=== PATIENT | male | born 1975 | race Caucasian/White ===

== ENCOUNTER 2018-04-04 20:11 | Emergency (ER) | payer MEDICAID ==
[~2018-04-04] VITALS: Ht 172.7 cm; Wt 50.4 kg
[2018-04-04 20:19] VITALS: BP 129/80
[2018-04-04] MEDS ORDERED: TETanus/Pertussis (Acell)/Diphther VAC/PF (Tdap-Adult) 0.5ml syringe IM ONE (21:50)
== END 2018-04-04 22:33 | disposition home or self-care (01) ==
LOC: ER 20:11
DX: L02.416 Cutaneous abscess of left lower limb (principal); G89.29 Other chronic pain; Z88.5 Allergy status to narcotic agent; Z88.8 Allergy status to other drugs, medicaments and biological substances
CPT/HCPCS: 10060; 90471; 90715; 99283; A6449

== ENCOUNTER 2021-02-24 17:59 | Inpatient (IN) | payer BC, MEDICAID ==
[~2021-02-24] VITALS: Ht 172.7 cm; Wt 52.2 kg
[2021-02-24 19:43] LABS: CLARITY,URINE SLIGHTLY CLOUDY (Clear); COLOR,URINE YELLOW (Yellow); GLUCOSE, URINE NEGATIVE (Neg); KETONES,URINE TRACE mg/dl (Neg); LEUKOCYTE ESTERASE ,URINE NEGATIVE (Neg); NITRITES, URINE NEGATIVE (Neg); OCCULT BLOOD,URINE LARGE (Neg); PH,URINE 5.5 (4.8-8.0); PROTEIN,URINE TRACE mg/dl (Neg)
[2021-02-24 19:47] LABS: ALANINE AMINOTRANSFERASE 72 U/L (12-78); ALBUMIN 3.4 G/DL (3.4-5.0); ALBUMIN/GLOBULIN RATIO 0.8 (1.1-1.5); ALKALINE PHOSPHATASE 141 IU/L (46-116); ANION GAP 8 (8-16); ASPARTATE AMINO TRANSFERASE 63 U/L (10-37); BILIRUBIN,TOTAL 1.7 MG/DL (0.1-1.0); BLOOD UREA NITROGEN 10 MG/DL (7-18); BUN/CREATININE RATIO 10.9 (5.4-32.0); CALCIUM 9.5 MG/DL (8.5-10.1); CHLORIDE 101 MMOL/L (99-107); CREATININE 0.92 MG/DL (0.60-1.10); GLUCOSE 116 MG/DL (70-104); LIPASE 182 U/L (73-393); POTASSIUM 3.4 MMOL/L (3.5-5.1); SODIUM 139 MMOL/L (135-145); TOTAL CARBON DIOXIDE 29.7 MMOL/L (24-32); TOTAL PROTEIN 7.5 G/DL (6.4-8.2); eGFR 89 ML/MIN
[2021-02-24 19:58] LABS: HEMATOCRIT 31.3 % (42.0-52.0); HEMOGLOBIN 9.7 g/dl (14.0-17.9); MEAN CORPUSCULAR HEMOGLOBIN 17.4 PG (27.0-31.0); MEAN CORPUSCULAR HGB CONC 30.9 g/dL (33.0-36.5); MEAN CORPUSCULAR VOLUME 56.1 FL (78-98); MEAN PLATELET VOLUME 8.2 FL (7.4-10.4); PLATELET COUNT 500 X10'3 (140-440); RED BLOOD COUNT 5.57 X10'6 (4.70-6.10); RED CELL DISTRIBUTION WIDTH 20.2 % (11.5-14.5)
[2021-02-24 19:59] LABS: NEUTROPHILS % (AUTO) 78.8 % (42-75)
[2021-02-24 20:00] LABS: BASOPHILS % (AUTO) 0.3 % (0-1); EOSINOPHILS # (AUTO) 0.2 X10'3 (0-0.9); EOSINOPHILS % (AUTO) 1.9 % (0-6); LYMPHOCYTES % (AUTO) 9.1 % (21-51); MONOCYTES # (AUTO) 1.1 X10'3 (0-0.9); MONOCYTES % (AUTO) 9.9 % (2-12); NEUTROPHILS # (AUTO) 8.8 X10'3 (1.8-7.7)
[2021-02-24] MEDS ORDERED: ondansetron/PF 4mg/2ml inj IV ONE (20:05)
[2021-02-24] MEDS ORDERED: morphine 4 MG/ML inj SYRINge IV ONE (20:05)
[2021-02-24] MEDS ORDERED: normal saline 1000ml 1,000 ML IV ONE (20:05)
[2021-02-24] MEDS ORDERED: iohexol 300mg/ml 100ml inj. ONE (20:14)
[2021-02-24 20:20] LABS: UA COLLECTION TYPE CLN CATCH MIDSTREAM
[2021-02-24 20:22] LABS: BACTERIA,URINE NONE SEEN /HPF (Neg); MUCUS STRANDS FEW /LPF (Neg); SQUAMOUS EPITHELIAL CELL,UR NONE SEEN /LPF (FEW); WBC,URINE NONE SEEN /HPF (0-4)
--- NOTE | 2021-02-24 20:24 | NUR ---
PT TO CT
[2021-02-24] MEDS ORDERED: temazepam 15mg capsule PO PRN (21:00)
[2021-02-24 21:05] LABS: MICROCYTOSIS 3+; PLATELET ESTIMATE INCREASED
[2021-02-24 21:06] LABS: ANISOCYTOSIS 3+
[2021-02-24] MEDS ORDERED: NO HOME MEDS (22:12)
[2021-02-24] MEDS ORDERED: HYDROcodone/acetaminophen 10/325mg tab PO PRN (23:15)
[2021-02-24] MEDS ORDERED: HYDROmorphone inj. 0.5 MG/0.5 ML DISP.SYRIN IV PRN (23:15)
[2021-02-24] MEDS ORDERED: magnesium hydroxide 30ml (MOM) UD suspension PO PRN (23:15)
[2021-02-24] MEDS ORDERED: morphine 2 MG/ML inj. syringe IV PRN ×2 (23:15)
[2021-02-24] MEDS ORDERED: HYDROcodone/acetaminophen 5mg/325mg tablet PO PRN (23:15)
[2021-02-24] MEDS ORDERED: potassium Cl 20 mEq SR tablet PO PRN ×2 (23:15)
[2021-02-24] MEDS ORDERED: diphenhydrAMINE 50 mg/ml inj IV PRN (23:15)
[2021-02-24] MEDS ORDERED: acetaminophen 650mg rectal suppository RC PRN (23:15)
[2021-02-24] MEDS ORDERED: metoclopramide 5 mg/ml inj IV PRN (23:15)
[2021-02-24] MEDS ORDERED: mag hydrox/Alum hydrox/simeth 30ml oral suspension PO PRN (23:15)
[2021-02-24] MEDS ORDERED: acetaminophen 325mg tablet PO PRN ×2 (23:15)
[2021-02-24] MEDS ORDERED: potassium Cl 40MEQ/1/2NS 520ml 520 ML IV PRN (23:15)
[2021-02-24] MEDS ORDERED: diphenhydrAMINE 25mg capsule PO PRN (23:15)
[2021-02-24] MEDS ORDERED: ondansetron/PF 4mg/2ml inj IV PRN (23:15)
[2021-02-24] MEDS ORDERED: ondansetron 4mg rapidly disintigrating tab PO PRN (23:15)
[2021-02-24] MEDS ORDERED: bisacodyl 10mg suppository rectal RC PRN (23:15)
[2021-02-24] MEDS: dextrose 5%-1/2 normal saline 1,000 ML IV SCH (23:34)
[2021-02-25] LABS: PARTIAL THROMBOPLASTIN TIME 29 SECONDS (22-32)
[2021-02-25 00:09] LABS: CREATINE KINASE 92 U/L (39-308); LIPASE 213 U/L (73-393); MAGNESIUM 1.7 MG/DL (1.5-2.4); PHOSPHORUS 4.8 MG/DL (2.3-4.5)
[2021-02-25 00:28] LABS: HEMOGLOBIN A1C 5.5 % (4.5-6.2)
[2021-02-25] MEDS: pantoprazole 40 MG vial IV SCH ×2 (00:29→11:45)
--- NOTE | 2021-02-25 04:01 | NUR ---
PT REQUESTS LINEN CHANGE DUE TO LOOSE BOWEL MOVEMENT. HE IS AMBULATORY TO BATHROOM AND ABLE TO CLEAN HIMSELF UP. BEDDING CHANGED, PT PLACED BACK ON MONITOR.
[2021-02-25 07:41] LABS: BASOPHILS % (AUTO) 0.6 % (0-1); EOSINOPHILS # (AUTO) 0.2 X10'3 (0-0.9); EOSINOPHILS % (AUTO) 3.5 % (0-6); LYMPHOCYTES # (AUTO) 1.2 X10'3 (1.1-4.8); LYMPHOCYTES % (AUTO) 16.5 % (21-51); MEAN PLATELET VOLUME 8.3 FL (7.4-10.4); MONOCYTES # (AUTO) 0.9 X10'3 (0-0.9); NEUTROPHILS # (AUTO) 4.7 X10'3 (1.8-7.7); NEUTROPHILS % (AUTO) 66.4 % (42-75); PLATELET COUNT 436 X10'3 (140-440); WHITE BLOOD COUNT 7.1 X10'3 (4.5-11.0)
[2021-02-25 07:57] LABS: ALANINE AMINOTRANSFERASE 73 U/L (12-78); ALBUMIN 3.1 G/DL (3.4-5.0); ALBUMIN/GLOBULIN RATIO 0.9 (1.1-1.5); ALKALINE PHOSPHATASE 152 IU/L (46-116); ANION GAP 6 (8-16); ASPARTATE AMINO TRANSFERASE 59 U/L (10-37); BILIRUBIN,TOTAL 1.3 MG/DL (0.1-1.0); BLOOD UREA NITROGEN 11 MG/DL (7-18); BUN/CREATININE RATIO 11.8 (5.4-32.0); CALCIUM 8.6 MG/DL (8.5-10.1); CHLORIDE 103 MMOL/L (99-107); CREATININE 0.93 MG/DL (0.60-1.10); GLUCOSE 113 MG/DL (70-104); SODIUM 139 MMOL/L (135-145); TOTAL CARBON DIOXIDE 29.8 MMOL/L (24-32); TOTAL PROTEIN 6.7 G/DL (6.4-8.2); eGFR 88 ML/MIN
[2021-02-25] MEDS: K and/or MAG REPLACEMENT MC SCH ×2 (08:00→19:26)
[2021-02-25] MEDS: docusate sod 100mg capsule PO SCH ×2 (08:00→19:19)
[2021-02-25 08:05] LABS: HEMATOCRIT 28.4 % (42.0-52.0); HEMOGLOBIN 9.1 g/dl (14.0-17.9); MEAN CORPUSCULAR HEMOGLOBIN 17.6 PG (27.0-31.0); MEAN CORPUSCULAR HGB CONC 32.1 g/dL (33.0-36.5); MEAN CORPUSCULAR VOLUME 54.9 FL (78-98); RED BLOOD COUNT 5.17 X10'6 (4.70-6.10)
[2021-02-25] MEDS ORDERED: iohexol 300mg/ml 100ml inj. ONE (10:12)
[2021-02-25 10:43] LABS: ANISOCYTOSIS 3+; HYPOCHROMASIA 2+; MICROCYTOSIS 3+; PLATELET ESTIMATE NORMAL; TOTAL CELLS COUNTED 100
[2021-02-25 10:44] LABS: ELLIPTOCYTES FEW; POLYCHROMASIA FEW; SCHISTOCYTES FEW
[2021-02-25 11:27] LABS: URINE AMPHETAMINE SCREEN NEGATIVE (Neg); URINE BARBITUATE SCREEN NEGATIVE (Neg); URINE BENZODIAZEPINES SCREEN NEGATIVE (Neg); URINE CANNABINOID SCREEN NEGATIVE (Neg); URINE COCAINE SCREEN NEGATIVE (Neg); URINE METHADONE SCREEN NEGATIVE (Neg); URINE OPIATE SCREEN POSITIVE (Neg); URINE PHENCYCLIDINE SCREEN NEGATIVE (Neg)
[2021-02-25] MEDS: heparin, porcine 5000 units/ml vial SQ SCH ×2 (11:45→19:25)
[2021-02-25] MEDS: dextrose 5%-1/2 normal saline 1,000 ML IV SCH ×2 (11:46→19:26)
--- NOTE | 2021-02-25 19:17 | NUR ---
PT SNEEZED AND NG TUBE CAME OUT. NEW NG TUBE PLACED WITH POSITIVE AUSCULTATION AND STOMACH CONTENTS NOTED ON ASPIRATION. NG TUBE SECURED.
[2021-02-25] MEDS: diatr meglu/diatrizoate 30ml oral sol.-(3 dose) bottle PO SCH (20:52)
--- NOTE | 2021-02-25 21:00 | NUR ---
ORAL CONTRAST ADMINISTERED, NG TUBE CLAMPED X 2 HOURS THEN RE-ATTACHED TO LOW INTERMITTENT SUCTION. PT REPORTS NO NEEDS AT THIS TIME, HE IS RESTING COMFORTABLY IN THE HOSPITAL BED WITH CALL LIGHT.
--- NOTE | 2021-02-25 23:00 | NUR ---
PT. SITTING UP IN BED SLEEPING.
--- NOTE | 2021-02-26 02:00 | NUR ---
PT SLEEPING, MOVED TO ANOTHER ROOM WITH ALL BELONGINGS.
[2021-02-26] MEDS: dextrose 5%-1/2 normal saline 1,000 ML IV SCH ×2 (06:07→12:03)
[2021-02-26 08:00] LABS: BASOPHILS % (AUTO) 0.5 % (0-1); EOSINOPHILS # (AUTO) 0.2 X10'3 (0-0.9); EOSINOPHILS % (AUTO) 3.9 % (0-6); HEMOGLOBIN 8.8 g/dl (14.0-17.9); LYMPHOCYTES % (AUTO) 16.7 % (21-51); MEAN PLATELET VOLUME 8.3 FL (7.4-10.4); MONOCYTES # (AUTO) 0.8 X10'3 (0-0.9); MONOCYTES % (AUTO) 13.6 % (2-12); NEUTROPHILS # (AUTO) 3.8 X10'3 (1.8-7.7); NEUTROPHILS % (AUTO) 65.3 % (42-75); PLATELET COUNT 424 X10'3 (140-440); WHITE BLOOD COUNT 5.8 X10'3 (4.5-11.0)
[2021-02-26] MEDS: K and/or MAG REPLACEMENT MC SCH ×2 (08:00→19:25)
[2021-02-26] MEDS: docusate sod 100mg capsule PO SCH ×2 (08:00→19:25)
[2021-02-26] MEDS: diatr meglu/diatrizoate 30ml oral sol.-(3 dose) bottle PO SCH ×2 (08:17→09:56)
[2021-02-26] MEDS: heparin, porcine 5000 units/ml vial SQ SCH ×2 (08:17→19:28)
[2021-02-26] MEDS: pantoprazole 40 MG vial IV SCH (08:17)
[2021-02-26 08:29] LABS: ALANINE AMINOTRANSFERASE 58 U/L (12-78); ALBUMIN/GLOBULIN RATIO 0.8 (1.1-1.5); ALKALINE PHOSPHATASE 115 IU/L (46-116); ASPARTATE AMINO TRANSFERASE 38 U/L (10-37); BLOOD UREA NITROGEN 6 MG/DL (7-18); BUN/CREATININE RATIO 6.8 (5.4-32.0); CALCIUM 8.6 MG/DL (8.5-10.1); CREATININE 0.88 MG/DL (0.60-1.10); GLUCOSE 112 MG/DL (70-104); TOTAL PROTEIN 6.6 G/DL (6.4-8.2); eGFR > 90 ML/MIN
[2021-02-26 08:36] LABS: % IRON SATURATION 7 % (11-46); IRON 19 UG/DL (53-167); TOTAL IRON BINDING CAPACITY 281 UG/DL (259-388)
[2021-02-26 08:50] LABS: HEMATOCRIT 27.4 % (42.0-52.0); MEAN CORPUSCULAR HEMOGLOBIN 17.9 PG (27.0-31.0); MEAN CORPUSCULAR VOLUME 55.9 FL (78-98)
[2021-02-26 09:04] LABS: ANISOCYTOSIS 3+; MICROCYTOSIS 3+; PLATELET ESTIMATE NORMAL
[2021-02-26 09:05] LABS: ELLIPTOCYTES FEW; HYPOCHROMASIA 1+; POLYCHROMASIA FEW; SCHISTOCYTES FEW
[2021-02-26 09:08] LABS: ANION GAP 9 (8-16); CHLORIDE 104 MMOL/L (99-107); POTASSIUM 3.3 MMOL/L (3.5-5.1); SODIUM 142 MMOL/L (135-145)
[2021-02-26] MEDS ORDERED: iohexol 300mg/ml 100ml inj. ONE (09:54)
--- NOTE | 2021-02-26 10:15 | NUR ---
rEPORT CALLED TO FAY FERGUSON. PT TO CT THAN SURGICAL ROOM 345
--- NOTE | 2021-02-26 10:40 | NUR ---
patient arrived from CT after getting no report from ER. called down to ER and was able to get report from PHYLLIS Ruiz after patient was already brought to the floor.
[2021-02-26 11:44] VITALS: BP 123/81
[2021-02-26] MEDS: potassium Cl 40MEQ/1/2NS 520ml 520 ML IV PRN (12:03)
[2021-02-26 19:54] VITALS: BP 114/80
[2021-02-26 23:41] VITALS: BP 127/86
[2021-02-27] MEDS: dextrose 5%-1/2 normal saline 1,000 ML IV SCH ×3 (01:34→16:35)
[2021-02-27] MEDS: metoclopramide 5 mg/ml inj IV SCH ×4 (02:52→19:48)
[2021-02-27 06:05] LABS: BASOPHILS # (AUTO) 0.1 X10'3 (0-0.2); BASOPHILS % (AUTO) 0.8 % (0-1); EOSINOPHILS # (AUTO) 0.3 X10'3 (0-0.9); EOSINOPHILS % (AUTO) 3.7 % (0-6); HEMATOCRIT 28.8 % (42.0-52.0); HEMOGLOBIN 8.7 g/dl (14.0-17.9); LYMPHOCYTES % (AUTO) 13.8 % (21-51); MEAN CORPUSCULAR HEMOGLOBIN 17.6 PG (27.0-31.0); MEAN CORPUSCULAR HGB CONC 30.2 g/dL (33.0-36.5); MEAN CORPUSCULAR VOLUME 58.3 FL (78-98); MEAN PLATELET VOLUME 8.3 FL (7.4-10.4); MONOCYTES # (AUTO) 0.8 X10'3 (0-0.9); MONOCYTES % (AUTO) 11.2 % (2-12); NEUTROPHILS # (AUTO) 5.3 X10'3 (1.8-7.7); NEUTROPHILS % (AUTO) 70.5 % (42-75); PLATELET COUNT 445 X10'3 (140-440); RED BLOOD COUNT 4.94 X10'6 (4.70-6.10); RED CELL DISTRIBUTION WIDTH 20.8 % (11.5-14.5); WHITE BLOOD COUNT 7.6 X10'3 (4.5-11.0)
[2021-02-27 06:07] LABS: ALANINE AMINOTRANSFERASE 54 U/L (12-78); ALBUMIN/GLOBULIN RATIO 0.9 (1.1-1.5); ALKALINE PHOSPHATASE 112 IU/L (46-116); ANION GAP 6 (8-16); ASPARTATE AMINO TRANSFERASE 36 U/L (10-37); BLOOD UREA NITROGEN 6 MG/DL (7-18); BUN/CREATININE RATIO 6.7 (5.4-32.0); CALCIUM 8.3 MG/DL (8.5-10.1); CHLORIDE 105 MMOL/L (99-107); GLUCOSE 119 MG/DL (70-104); POTASSIUM 3.3 MMOL/L (3.5-5.1); SODIUM 139 MMOL/L (135-145); TOTAL CARBON DIOXIDE 27.8 MMOL/L (24-32); TOTAL PROTEIN 6.4 G/DL (6.4-8.2); eGFR > 90 ML/MIN
--- NOTE | 2021-02-27 06:35 | NUR ---
Problems reprioritized. Patient report given, questions answered & plan of care reviewed with PHYLLIS Carranza.
[2021-02-27 07:00] VITALS: BP 104/61
[2021-02-27] MEDS: docusate sod 100mg capsule PO SCH ×2 (08:00→19:49)
[2021-02-27] MEDS: K and/or MAG REPLACEMENT MC SCH ×2 (08:00→19:57)
[2021-02-27] MEDS: heparin, porcine 5000 units/ml vial SQ SCH ×2 (08:21→19:48)
[2021-02-27] MEDS: potassium Cl 40MEQ/1/2NS 520ml 520 ML IV PRN (08:26)
[2021-02-27 11:00] VITALS: BP 128/80
--- NOTE | 2021-02-27 12:51 | NUR ---
Malnutrition consult: Pt seen at bedside reports UBW 115 lbs and is unsure of ABW though reports possibly less than UBW. Current documented wt in EMR is 115 lbs though isn't scaled. Pt appears to be chronically underweight. Pt currently NPO with NG tube in place though states he is very hungry and is hoping to get NG tube removed and diet advanced. Pt reports eating well [employer]. Pt with no documented edema or decreased muscle strength. No visible fat or muscle wasting. Pt currently lacks a minimum of two criteria for malnutrition. Pt provided with [facility] coupons to assist with PO intake following discharge and RD contact information. Pt denies food allergies or difficulty chewing/swallowing. Will continue to follow. Addendum: 02/27/21 at [address] Amended: Links added.
--- NOTE | 2021-02-27 18:02 | NUR ---
Problems reprioritized. Patient report given Dionne FERGUSON, questions answered & plan of care reviewed with .
[2021-02-27 20:00] VITALS: BP 122/80
[2021-02-28] VITALS: BP 127/77
[2021-02-28] MEDS: metoclopramide 5 mg/ml inj IV SCH ×2 (02:45→08:00)
[2021-02-28] MEDS: dextrose 5%-1/2 normal saline 1,000 ML IV SCH ×2 (02:49→12:48)
[2021-02-28 06:00] LABS: BASOPHILS % (AUTO) 0.6 % (0-1); EOSINOPHILS # (AUTO) 0.3 X10'3 (0-0.9); EOSINOPHILS % (AUTO) 4.1 % (0-6); HEMATOCRIT 27.8 % (42.0-52.0); HEMOGLOBIN 8.5 g/dl (14.0-17.9); LYMPHOCYTES # (AUTO) 1.2 X10'3 (1.1-4.8); LYMPHOCYTES % (AUTO) 16.1 % (21-51); MEAN CORPUSCULAR HEMOGLOBIN 17.7 PG (27.0-31.0); MEAN CORPUSCULAR HGB CONC 30.7 g/dL (33.0-36.5); MEAN CORPUSCULAR VOLUME 57.8 FL (78-98); MEAN PLATELET VOLUME 8.1 FL (7.4-10.4); MONOCYTES # (AUTO) 0.8 X10'3 (0-0.9); MONOCYTES % (AUTO) 10.5 % (2-12); NEUTROPHILS # (AUTO) 5.1 X10'3 (1.8-7.7); NEUTROPHILS % (AUTO) 68.7 % (42-75); PLATELET COUNT 431 X10'3 (140-440); RED BLOOD COUNT 4.81 X10'6 (4.70-6.10); RED CELL DISTRIBUTION WIDTH 20.5 % (11.5-14.5); WHITE BLOOD COUNT 7.4 X10'3 (4.5-11.0)
[2021-02-28 06:20] LABS: ALANINE AMINOTRANSFERASE 54 U/L (12-78); ALBUMIN 3.1 G/DL (3.4-5.0); ALBUMIN/GLOBULIN RATIO 0.9 (1.1-1.5); ALKALINE PHOSPHATASE 104 IU/L (46-116); ANION GAP 8 (8-16); ASPARTATE AMINO TRANSFERASE 40 U/L (10-37); BILIRUBIN,TOTAL 0.8 MG/DL (0.1-1.0); BLOOD UREA NITROGEN 4 MG/DL (7-18); BUN/CREATININE RATIO 4.4 (5.4-32.0); CALCIUM 8.5 MG/DL (8.5-10.1); CHLORIDE 106 MMOL/L (99-107); GLUCOSE 116 MG/DL (70-104); POTASSIUM 3.4 MMOL/L (3.5-5.1); SODIUM 140 MMOL/L (135-145); TOTAL CARBON DIOXIDE 25.7 MMOL/L (24-32); TOTAL PROTEIN 6.5 G/DL (6.4-8.2); eGFR > 90 ML/MIN
--- NOTE | 2021-02-28 06:30 | NUR ---
Problems reprioritized. Patient report given, questions answered & plan of care reviewed with Sabine FERGUSON. Addendum: 02/28/21 at 0630 by Dionne Dyson RN Amended: Links added.
[2021-02-28 07:00] VITALS: BP 128/86
[2021-02-28] MEDS: K and/or MAG REPLACEMENT MC SCH (08:00)
[2021-02-28] MEDS: docusate sod 100mg capsule PO SCH (08:00)
[2021-02-28 08:21] LABS: PLATELET ESTIMATE NORMAL
[2021-02-28 08:22] LABS: ANISOCYTOSIS 3+; MICROCYTOSIS 3+; POIKILOCYTOSIS FEW
[2021-02-28] MEDS: heparin, porcine 5000 units/ml vial SQ SCH (08:35)
[2021-02-28] MEDS ORDERED: potassium Cl 20 mEq SR tablet PO STA (09:43)
[2021-02-28] MEDS ORDERED: PANT-47 PO (09:56)
[2021-02-28 11:00] VITALS: BP 133/79
--- NOTE | 2021-02-28 13:43 | NUR ---
Per Dr Cano ok to discharge, Dr Crook in surgery no need to verify.
--- NOTE | 2021-02-28 15:16 | NUR ---
PAGER ID: [phone] MESSAGE: [facility]urg [id number] Re: [id number] Kai Crook would like you to order Reglan for discharge stated patient can take qid x1 wk, 2x day for 1 week then once a day for 1 week but would like you to order.
[2021-02-28] MEDS ORDERED: METO-292 PO ×3 (15:21→15:22)
--- NOTE | 2021-02-28 17:22 | NUR ---
Patient discharge instructions reviewed with patient and patient verbalized understanding. Patients IV dc'd cannula intact. Patient was taken to the elevator and was escorted to the lobby where daughter was waiting for him. Patient states he has all his belonging
== END 2021-02-28 17:16 | disposition home or self-care (01) | DRG 389 ==
LOC: ER 18:00 → UNDOADMIN 23:12 → ED HOLD 23:12 → SUR 3N 02-26 10:33
PROVIDERS: ADMIT Family Medicine; ATTEND Family Medicine
PROC: 0D9670Z Drainage of Stomach with Drainage Device, Via Natural or Artificial Opening (ICD-10-PCS; principal; 2021-02-25)
DX: K56.690 Other partial intestinal obstruction (principal); E46 Unspecified protein-calorie malnutrition; Z68.1 Body mass index [BMI] 19.9 or less, adult; D63.8 Anemia in other chronic diseases classified elsewhere; K52.9 Noninfective gastroenteritis and colitis, unspecified; R31.9 Hematuria, unspecified; R79.89 Other specified abnormal findings of blood chemistry; D50.9 Iron deficiency anemia, unspecified; E86.0 Dehydration; E86.1 Hypovolemia; E87.6 Hypokalemia; Z90.49 Acquired absence of other specified parts of digestive tract
CPT/HCPCS: 36415; 74177; 80053; 80305; 81001; 82550; 83036; 83540; 83550; 83690; 83735; 83880; 84100; 84443; 85007; 85008; 85025; 85610; 85730; 87081; 96361; 96374; 96375; 99285; C9113; G0378; J1644; J2270; J2405; J2765; J3480; J7030; Q9963; Q9967